=== PATIENT | female | born 1955 | race Caucasian/White ===

== ENCOUNTER 2017-03-17 17:10 | Inpatient (IN) | payer BC, MEDICARE ==
[2017-03-17] MEDS ORDERED: ISOVUE-370 76%-LOCM 1 ML ONE (17:33)
[2017-03-17 17:59] LABS: Hemoglobin 16.1 g/dL (12.0-16.0); Mean Corpuscular HGB CONC 33.4 g/dL (32.0-36.0); Mean Corpuscular Hemoglobin 30.9 pg (27.0-31.0); Mean Corpuscular Volume 92.5 fl (81.0-99.0); Mean Platelet Volume 7.5 fL (7.4-10.4); Platelet Count 243 thou/uL (130-400); RBC Distribution Width 12.2 % (11.5-14.5); White Blood Cell (WBC) Count 7.7 thou/uL (4.8-10.8)
[2017-03-17 18:16] LABS: ALT (SGPT) 27 U/L (8-55); AST (SGOT) 34 U/L (5-34); Albumin 4.1 g/dL (3.4-4.8); Alkaline Phosphatase 200 U/L (40-150); Anion Gap 23 mmol/L (10-20); BUN (Urea Nitrogen) 28 mg/dL (9.8-20.1); Band 25 % (5-11); Bilirubin, Total 0.4 mg/dL (0.2-1.2); Calc. Creatinine Clearance 0 mL/min (70-130); Calcium 9.4 mg/dL (7.8-10.44); Carbon Dioxide 15 mmol/L (23-31); Chloride 99 mmol/L (98-107); Estimated GFR-MDRD 21; Globulin 3.5 g/dL (2.4-3.5); Glucose 149 mg/dL (80-115); Large Platelets SLIGHT; Lipase 48 U/L (8-78); Lymphocytes 4 % (21-51); MDiff Complete? YES; Magnesium 2.1 mg/dL (1.6-2.6); Monocytes 1 % (0-10); Neutrophil 66 % (42-75); Potassium 3.8 mmol/L (3.5-5.1); Protein, Total 7.6 g/dL (6.0-8.3); Reactive Lymphocytes 4 % (0-10); Sodium 133 mmol/L (136-145)
[2017-03-17 18:27] LABS: Prothrombin Time 13.5 SEC (12.0-14.7)
--- NOTE | 2017-03-17 18:39 | RAD ---
PORTABLE CHEST ONE VIEW 03/17/17 at 5:19 p.m. HISTORY: Syncope. FINDINGS: Comparison made with exam of 02/22/17. The heart size is normal. the lungs are expanded without focal areas of consolidation, pneumothorax o r pleural effusions. There is continued mild elevation of the left hemidiaphragm. IMPRESSION: No acute process. POS: [facility]
[2017-03-17] MEDS ORDERED: Acetaminophen 500 MG TAB ONE (18:42)
[2017-03-17] MEDS ORDERED: Pantoprazole 40 MG VIAL ONE ×2 (18:42→18:43)
[2017-03-17] MEDS ORDERED: Oseltamivir 75 MG CAP PO SCH (19:30)
[2017-03-17 20:27] LABS: Lactic Acid 3.2 mmol/L (0.5-2.2)
--- NOTE | 2017-03-17 21:05 | CT ---
CT ABDOMEN AND PELVIS WITH IV CONTRAST 03/17/17 HISTORY: GI bleed. Syncope. Mild abdominal pain. FINDINGS: Comparison made with noncontrasted exam of 02/23/17. The lung bases are clear. The liver, spleen, pancreas, left adrenal gland and kidneys are normal. Th e 1.5 cm right adrenal nodule consistent with adenoma on the noncontrasted exam is stable. No free air, free fluid or lymphadenopathy seen in the abdomen or pelvis. There is fluid in loops of small and large bowel. No abnormal bowel loop dilatation is seen. A normal appearing appendix is pres ent. There are vascular calcifications without evidence of aneurysmal dilatation of the abdominal aor ta. The patient is post hysterectomy and cholecystectomy. There are degenerative changes in the spine . A small hiatal hernia is present. IMPRESSION: 1. Small hiatal hernia. 2. Right adrenal adenoma. 3. Fluid in the GI tract. POS: [facility]
[2017-03-17 21:31] LABS: Bilirubin Negative (Negative); Blood, Urine Large (Negative); Clarity CLOUDY (Clear); Glucose, Urine (Dipstick) Negative (Negative); Leukocyte Negative (Negative); Nitrite Negative (Negative); Protein, Urine (Dipstick) 100 mg/dL (Neg-Trace); Specific Gravity, Urine 1.044 (1.002-1.036); Urobilinogen 0.2 mg/dL (0.2-1.0)
[2017-03-17 21:36] LABS: Bacteria/HPF 1+ HPF (None Seen); Hyaline Casts/LPF 0-3 HYALINE CAST LPF (0-3 Hyaline); Squamous Epithelial 21-50 HPF (0-3); WBC/HPF 0-3 HPF (0-3)
[2017-03-17 21:44] LABS: Yeast-AUWi Flag 66.9 (0-25.0)
[2017-03-17 21:45] LABS: Yeast-All Forms None Seen HPF (None Seen)
[2017-03-17] MEDS ORDERED: cefTRIAXone\\ROCEPHIN 1 GM in Sodium Chloride 0.9% 100 ML IVPB SCH (21:45)
[2017-03-17] MEDS ORDERED: CCU Electrolyte Replacement 1 EACH FS SCH (21:45)
[2017-03-17] MEDS ORDERED: Potassium Phosphate 15 MMOL in Sodium Chloride 0.9% 250 ML 250 ML IV PRN (22:11)
[2017-03-17] MEDS ORDERED: Potassium Chloride 20 MEQ TAB PO PRN (22:11)
[2017-03-17] MEDS ORDERED: Potassium Phosphate 9 MMOL in Sodium Chloride 0.9% 100 ML IVPB PRN (22:11)
[2017-03-17] MEDS ORDERED: CCU ELECTROLYTE REPLACEMENT PROTOCOL FS PRN (22:11)
[2017-03-17] MEDS ORDERED: Magnesium 2 GM/NS 0.9% 100 ML 2 GM in Premix Bag 1 BAG IVPB PRN (22:11)
[2017-03-17] MEDS ORDERED: Potassium Chloride 40 MEQ in Sodium Chloride 0.9% 250 ML 250 ML IVPB PRN (22:11)
[2017-03-17] MEDS ORDERED: Magnesium Oxide 400 MG TAB PO PRN ×2 (22:11)
[2017-03-17] MEDS ORDERED: Potassium Chloride 40 MEQ in Premix Bag 1 BAG IVPB PRN (22:11)
[2017-03-17] MEDS ORDERED: Potassium Phosphate 12 MMOL in Sodium Chloride 0.9% 250 ML 250 ML IV PRN (22:11)
[2017-03-17 22:19] LABS: Lactic Acid 1.7 mmol/L (0.5-2.2)
[2017-03-17 22:39] LABS: Troponin I 0.046 ng/mL (< 0.028)
[2017-03-17 23:02] VITALS: BMI 15.4
[2017-03-17] MEDS: Sodium Chloride 0.9% 1,000 ML IV SCH (23:05)
[2017-03-18] MEDS: cefTRIAXone\\ROCEPHIN 1 GM, Syringe 0.4 ML in Sterile Water 9.6 ML SLOW IVP SCH ×2 (00:10→22:06)
[2017-03-18 01:15] LABS: #Lymphocytes 0.6 thou/uL (1.20-3.40); #Monocytes 0.3 thou/uL (0.11-0.59); %Basophils 0.1 % (0.0-1.0); %Lymphocytes 9.6 % (21.0-51.0); %Monocytes 4.8 % (0.0-10.0); %Neutrophils 85.5 % (42.0-75.0); Hemoglobin 14.6 g/dL (12.0-16.0); Mean Corpuscular HGB CONC 33.4 g/dL (32.0-36.0); Mean Corpuscular Hemoglobin 30.7 pg (27.0-31.0); Mean Corpuscular Volume 91.7 fl (81.0-99.0); Mean Platelet Volume 7.3 fL (7.4-10.4); Platelet Count 152 thou/uL (130-400); RBC Distribution Width 12.2 % (11.5-14.5); Red Blood Cell (RBC) Count 4.75 mill/uL (4.20-5.40); White Blood Cell (WBC) Count 5.8 thou/uL (4.8-10.8)
[2017-03-18 01:29] LABS: Troponin I 0.051 ng/mL (< 0.028)
--- NOTE | 2017-03-18 02:39 | HP ---
DATE OF ADMISSION: 03/17/2017 PRIMARY CARE PHYSICIAN: Eric Yi M.D. CHIEF COMPLAINT: Episode of syncope, low blood pressure, and dizziness. HISTORY OF PRESENT ILLNESS: This is a 62-year-old female patient of Dr. Eric Yi with a history of hypertension, hyperlipidemia, anxiety disorder, and a recent admission for a near syncope, who presented to the emergency department with worsening symptoms of dizziness. During the last hospitalization 4 weeks ago, she was found to be dehydrated and to have a urinary tract infection with Proteus mirabilis and was sent home on oral Cipro. She was told to follow up with Dr. Yi and did not follow up as directed. Today, she reports of having an episode of low blood pressure and passing out at home. She presented to the emergency department and had a large bloody bowel movement at that time. She states that over the past few weeks, she has had smaller episodes of bright red blood in her stool. Per family, her blood pressure was low as 60 systolic at home prior to coming to the ED. Upon presenting to the emergency department, she was also found to have a positive flu test. The patient states that she did develop febrile symptoms about 4 days ago with cough, congestion, and fever up to 102. Due to the near syncopal episode and the blood in the stool, she was given IV fluids in the ER as well as transfusion of unmatched packed red blood cells. Following the initiation of the transfusion, she developed a transfusion reaction with high fever and chills. She was given steroids, Tylenol, and Benadryl at that time. She states that she felt worse since then. She is now being admitted for further evaluation, treatment of the influenza, GI bleed, and possible sepsis syndrome. PAST MEDICAL HISTORY: Hypertension, hyperlipidemia, anxiety disorder. She does not have a diagnosis of COPD, but she has smoked for 40 years. The patient states she has chronic abdominal pain for which she was followed by Dr. Kidd. No history of diabetes, stroke or coronary artery disease. PAST SURGICAL HISTORY: Hysterectomy, cholecystectomy, bladder repair, colonoscopy and EGD by Dr. Kidd she states several years ago MEDICATIONS: Include metoprolol 50 mg b.i.d., Lipitor 20 mg daily, Venlafaxine 150 mg daily, gabapentin 300 mg 4 at bedtime, Valium 2 mg 2 tabs at bedtime, Zolpidem p.r.n. sleep, butalbital p.r.n. pain, amlodipine/benazepril 10/20 once daily. FAMILY HISTORY: Positive for hypertension, stroke, and history of alcoholism. SOCIAL HISTORY: She is . She lives at home. She smokes about half a pack of cigarettes a day for the past 40-45 years. Denies alcohol or illicit drug use. REVIEW OF SYSTEMS: General: She does admit to recent illness, recent hospitalization 4 weeks ago. She admits to positive fevers and chills, decreased appetite. HEENT: Positive sore throat, positive congestion. Cardiovascular: Denies chest pain or palpitations. Pulmonary: Positive for cough, positive shortness of breath. No hemoptysis. Gastrointestinal: Positive nausea and vomiting, positive bloody stool, bright red blood per rectum. Genitourinary: History of urinary tract infection 4 weeks ago. She did not complete her antibiotic course. Musculoskeletal: Positive for joint pains. Neurologic: Positive for syncope, persistent dizziness. PHYSICAL EXAMINATION: VITAL SIGNS: T-max in the ER was 102, pulse of 100, respirations 14-18, blood pressure was 100/50. GENERAL: She is awake and alert, in no acute distress. She does appear ill but nontoxic. No conversational dyspnea. NECK: Supple, no JVD, adenopathy, or bruits. HEART: Tachycardic, with no murmurs. LUNGS: With scattered rhonchi, positive for expiratory wheezes throughout. ABDOMEN: Positive bowel sounds in all four quadrants, soft. Diffuse tenderness. No rebound, no guarding. EXTREMITIES: No clubbing, cyanosis, or edema. 2+ peripheral pulses bilaterally. NEUROLOGIC: CN 2-12 are grossly intact. No lateralizing signs. LABORATORY DATA: White blood cell count 7.7, hemoglobin and hematocrit 16.1 and 48.2, 25% bands, 4% lymphocytes, 243 platelets. PT, PTT were normal. D- dimer was elevated at 7.41. Sodium 133, potassium 3.8, chloride 99, CO2 of 15, BUN and creatinine 28 and 2.33 with a GFR of 21, glucose of 149. Lactic acid initially was elevated at 5.8, now is down to 3.2, calcium of 9.4, magnesium of 2.1, total bilirubin of 0.4, AST and ALT are normal, alkaline phosphatase of 200. LDH elevated at 417. Cardiac enzymes were negative. Albumin of 4.1, lipase of 48. Urinalysis is pending. Flu test was positive for influenza type A. Chest x-ray showed no active disease, no acute process. Abdominal CT and pelvis CT revealed small hiatal hernia, right adrenal adenoma, fluid in the small and large bowels, but no signs of dilation. ASSESSMENT AND PLAN: This is a 62-year-old female patient with a history of hypertension and hyperlipidemia with a recent under treated urinary tract infection, now with sepsis syndrome, influenza, hematochezia and possible COPD exacerbation. 1. Influenza. We will continue respiratory precautions. In spite of being 4 days since the onset of her symptoms, due to her respiratory status, we will initiate Tamiflu therapy. 2. Sepsis syndrome with elevated lactate, bandemia as well as hypotension and syncope. We will start Rocephin to cover for recent Proteus UTI and admit to the critical care unit. Will continue fluid resuscitation. Consult Critical Care. 3. Possible gastrointestinal bleed. We will recheck hemoglobin and hematocrit after recent transfusion. We will follow closely and consult GI. 4. Stage 4 chronic kidney disease. May improve with fluid resuscitation but continue to monitor closely. 5. Anxiety and depression. We will continue venlafaxine to avoid withdrawal symptoms. 6. History of hypertension. We will hold her BP meds for now since she is hypotensive. 7. COPD. Will start albuterol nebulizer treatments. Follow up with chest xray. Will consider PFT after recovery from acute illness. MTDD
[2017-03-18 04:56] LABS: #Lymphocytes 0.6 thou/uL (1.20-3.40); #Monocytes 0.2 thou/uL (0.11-0.59); #Neutrophils 3.9 thou/uL (1.40-6.50); %Basophils 0.2 % (0.0-1.0); %Eosinophils 0.2 % (0.0-10.0); %Lymphocytes 12.5 % (21.0-51.0); %Monocytes 4.6 % (0.0-10.0); %Neutrophils 82.5 % (42.0-75.0); Hemoglobin 14.5 g/dL (12.0-16.0); Mean Corpuscular HGB CONC 33.8 g/dL (32.0-36.0); Mean Corpuscular Hemoglobin 31.2 pg (27.0-31.0); Mean Platelet Volume 7.6 fL (7.4-10.4); Platelet Count 152 thou/uL (130-400); RBC Distribution Width 12.3 % (11.5-14.5); Red Blood Cell (RBC) Count 4.64 mill/uL (4.20-5.40); White Blood Cell (WBC) Count 4.7 thou/uL (4.8-10.8)
[2017-03-18] MEDS: Sodium Chloride 0.9% 1,000 ML IV SCH ×3 (05:05→23:59)
[2017-03-18 05:08] LABS: INR-International Normal Ratio 1.1; PTT 37.3 SEC (22.9-36.1); Prothrombin Time 14.5 SEC (12.0-14.7)
[2017-03-18 05:22] LABS: ALT (SGPT) 32 U/L (8-55); AST (SGOT) 65 U/L (5-34); Albumin 3.6 g/dL (3.4-4.8); Alkaline Phosphatase 144 U/L (40-150); Anion Gap 17 mmol/L (10-20); BUN (Urea Nitrogen) 25 mg/dL (9.8-20.1); Bilirubin, Total 0.3 mg/dL (0.2-1.2); Calc. Creatinine Clearance 25 mL/min (70-130); Calcium 8.2 mg/dL (7.8-10.44); Carbon Dioxide 14 mmol/L (23-31); Chloride 110 mmol/L (98-107); Estimated GFR-MDRD 34; Globulin 2.9 g/dL (2.4-3.5); Glucose 119 mg/dL (80-115); Potassium 3.1 mmol/L (3.5-5.1); Protein, Total 6.5 g/dL (6.0-8.3); Sodium 138 mmol/L (136-145)
[2017-03-18] MEDS: Pantoprazole 40 MG VIAL IVP SCH ×2 (07:49→20:32)
[2017-03-18] MEDS: Oseltamivir 75 MG CAP PO SCH ×2 (07:49→20:32)
[2017-03-18] MEDS: Venlafaxine HCl XR 150 MG CAP PO SCH (07:49)
--- NOTE | 2017-03-18 08:42 | RAD ---
CHEST ONE VIEW: History: Pneumonitis. Follow up. Comparison: 03-17-17 FINDINGS: Cardiac silhouette is magnified by projection. Pulmonary vasculature remains upper limits of normal. Mild patchy bibasilar infiltrates are stable. Mediastinum is midline. There is no evidence of pneumot horax. monitoring and evaluation advisor leads overlie the chest. IMPRESSION: Stable radiographic appearance of the chest. POS: [facility]
[2017-03-18] MEDS ORDERED: FLU VACC QS2017-18 36 mo. & older 0.5 ML SYRINGE IM ONE (09:00)
[2017-03-18 12:31] LABS: Hemoglobin 15.4 g/dL (12.0-16.0); Mean Corpuscular HGB CONC 33.2 g/dL (32.0-36.0); Mean Corpuscular Hemoglobin 30.9 pg (27.0-31.0); Mean Corpuscular Volume 93.1 fl (81.0-99.0); Mean Platelet Volume 7.8 fL (7.4-10.4); Platelet Count 165 thou/uL (130-400); RBC Distribution Width 12.4 % (11.5-14.5); Red Blood Cell (RBC) Count 4.99 mill/uL (4.20-5.40); White Blood Cell (WBC) Count 6.4 thou/uL (4.8-10.8)
--- NOTE | 2017-03-18 13:00 | PRG ---
DATE OF SERVICE: 03/18/2017 SUBJECTIVE: Ms. Weeks is alert and awake. She is complaining of lower abdominal pain. She is req uesting to have something to drink. She was admitted last night with possible sepsis and rectal blee ding. Evidently, she was given a unit of blood as well exact reasoning for giving her a unit of bloo d based on her hemoglobin and hematocrit is still unclear to me. At this time, she is still complain ing of lower abdominal pain. She was tested positive for flu antigen as well. PHYSICAL EXAMINATION: VITAL SIGNS: BP 173/91, pulse 77, O2 saturation is 97%. GENERAL: She appears to be a little bit fatigued. HEENT: Otherwise, unremarkable. NECK: Supple, full range of motion, no masses. LUNGS: Reveal bilateral breath sounds. HEART: Reveals no murmur. ABDOMEN: Reveals diffuse tenderness to the left lower quadrant, right lower quadrant area without ev idence of rebound or guarding. There is no hepatosplenomegaly noted. LABORATORY DATA: Her hemoglobin is 14.5, hematocrit 42.7, white blood count 4.7. Electrolyte panel significant for potassium 3.1, creatinine is down to 1.56. Lactic acid down to 1.7. It is noted his stool for C. difficile has been done and antigen is currently positive, toxin still pending. IMPRESSION: 1. This is the patient who appears to be admitted with rectal bleeding. I believe, she probably is suffering from Clostridium difficile colitis. 2. Incidentally noticed, she probably has influenza. 3. Hypertension. 4. Recent urinary tract infection with dehydration. PLAN: We will begin the patient on IV Flagyl. We will continue current Rocephin. We will await fur ther recommendations per Pulmonology as well as a GI. It appears, in my opinion, the patient is stab le enough to move to the floor. She is currently on Rocephin. We will continue this at this time. We will go ahead and start her on clear liquid diet.
[2017-03-18] MEDS: Morphine 4 MG/ML VIAL SLOW IVP PRN ×2 (13:03→18:20)
[2017-03-18] MEDS: metroNIDAZOLE 500 MG in Premix Bag 1 BAG IVPB SCH ×2 (13:03→22:11)
[2017-03-18] MEDS: PROVENTIL INHALER 6.7 G (200 INHALATIONS) INH SCH ×2 (14:58→19:07)
--- NOTE | 2017-03-18 19:36 | CON ---
DATE OF CONSULTATION: 03/18/2017 GI INPATIENT CONSULTATION NOTE REQUESTING PHYSICIAN: Dr. Mobley. REASON FOR CONSULTATION: Lower gastrointestinal bleeding. HISTORY OF PRESENT ILLNESS: Benita Weeks is a 62-year-old woman who was recently seen in the GI Clinic in the outpatient setting by my colleague, Dr. Ap Kidd. She has a history of hyper tension, hyperlipidemia, anxiety disorder, ongoing tobacco abuse, hysterectomy and cholecystectomy. Dr. Kidd saw her just over a month ago in consultation for chronic abdominal pain which at that time she was characterizing is being on the right side. She also had some chronic nausea as well as some recent weight loss. No GI bleeding at that time. She had planned to perform EGD and colonoscopy, bu t this has not happened yet. She reports having had a prior colonoscopy in 2005 with history of poly ps removed and a prior EGD about 30 years ago and she is not sure what was found at that time. She was admitted to the hospital last night after presenting with syncope and hypotension. She had e levated lactic acid and sepsis syndrome. This is in the context of recent antibiotic treatment for P roteus urinary tract infection. After arrival to the ER, she had a bowel movement and passed a fairl y large amount of bright red blood per rectum. She says this is the first time this has happened to this extent. She has had a few more minor episodes of bright red blood over the years in the past. It is unclear why because her presenting hemoglobin was 16, but she received 1 unit RBC transfusion a nd upon arrival, hemoglobin is currently 15.4. Unfortunately, she developed a transfusion reaction a nd had to get Benadryl and steroids. Laboratory studies also demonstrated positive influenza A as we ll as antigen positivity for C. difficile though toxin is pending. C. difficile was retested today a nd antigen and toxin are negative, but she has been started on Flagyl already. Currently she complai ns of her chronic ongoing more mild abdominal discomfort with a little bit of new lower abdominal melissa n since presentation over the past day. She is tolerating a liquid diet right now. She has remained hemodynamically stable. She passed 1 more bowel movement earlier today with bright red blood in it. Her lab parameters have all improved including her creatinine and lactic acid. PAST MEDICAL HISTORY: Hypertension, hyperlipidemia, anxiety disorder, ongoing tobacco abuse, hystere ctomy, cholecystectomy, bladder repair, colonoscopy with colon polyps about 10 years ago. EGD may be 30 years ago. MEDICATIONS: Metoprolol, Lipitor, venlafaxine, gabapentin, Valium, zolpidem, butalbital, amlodipine/ benazepril. INPATIENT MEDICATIONS: IV ceftriaxone, IV Flagyl, Tamiflu, Protonix 40 mg IV q.12 hours, potassium c hloride. SOCIAL HISTORY: She smokes about half pack of cigarettes per day for the past 40 years. No alcohol or drug use. FAMILY HISTORY: Negative for GI malignancy. PHYSICAL EXAMINATION: VITAL SIGNS: Temperature 98.2, pulse 81, blood pressure 173/91, 100% oxygen saturation on room air. GENERAL: A 62-year-old woman sitting up in bed comfortably in no acute distress. SKIN: No jaundice, no rashes were palpable. EYES: No scleral icterus. Extraocular movements intact. ENT: Mucous membranes moist, no oral lesions. LYMPH: No submandibular or supraclavicular lymphadenopathy. THYROID: Nontender to palpation. HEART: Regular rate and rhythm. LUNGS: Clear to auscultation bilaterally. ABDOMEN: Bowel sounds present, soft, some tenderness to palpation in the right upper quadrant and in the lower abdomen in the midline, but no guarding or rebound tenderness. EXTREMITIES: No peripheral edema. VESSELS: Radial pulses 2+ bilaterally. NEUROLOGIC: Cranial nerves II-XII intact bilaterally. No focal deficits. LABORATORY STUDIES: WBC 6.4, hemoglobin 15.4, platelets 165, INR 1.1, lactic acid initially 5.8, now down to 1.7. Creatinine initially 2.33 down now to 1.56, BUN is 25. Total bilirubin 0.3, alkaline phosphatase 144, AST 65, ALT 32, and troponin negative. Influenza A is positive. Yesterday, stool s tudies show Clostridium difficile antigen positive, toxin and PCR pending. Today C. difficile collec tion showed negative antigen and toxin, Campylobacter and Shiga toxin are negative. Stool culture sh ows normal enteric octavia. IMAGING STUDIES: CT of the abdomen and pelvis performed on admission shows a small hiatal hernia, ri ght adrenal adenoma and is otherwise negative. Chest x-ray showed no acute processes. There is some mild bilateral interstitial haziness. ASSESSMENT AND PLAN: 1. Rectal bleeding. 2. Possible Clostridium difficile colitis. 3. Chronic abdominal pain. 4. Influenza A. 5. Recent transfusion reaction. The patient remains hemodynamically stable and hemoglobin is stable and normal at 15.4. She does have some overt bright red blood per rectum. This could just represen t a rectal outlet source, but also suspect possible colitis either infectious or inflammatory. Of no te, the discordant C. difficile assay results, I agree with going ahead and continuing treatment with Flagyl for now. Dr. Kidd had planned to perform EGD and colonoscopy on an outpatient basis as alireza p for her chronic abdominal discomfort. At this point, I would not plan for any endoscopy tomorrow g iven her stability, her normal hemoglobin and the more chronic nature of her symptoms. Would trend h emoglobin and hematocrit. Observe for further overt bleeding today and tomorrow and let her have a f ull liquid diet. I suspect we will stick with the plan for a more elective esophagogastroduodenoscop y and colonoscopy. Workup for her chronic abdominal pain on an outpatient basis following hospital [facility].
[2017-03-18] MEDS: Metoprolol Tartrate 50 MG TAB PO SCH (20:31)
[2017-03-18] MEDS: Diazepam 2 MG TAB PO SCH (20:31)
[2017-03-18] MEDS: Zolpidem Tartrate 5 MG TAB PO PRN (20:32)
[2017-03-18] MEDS: Gabapentin 300 MG CAP PO SCH ×2 (20:32)
[2017-03-18] MEDS: Acetaminophen 500 MG TAB PO PRN (23:58)
--- NOTE | 2017-03-19 02:43 | CON ---
DATE OF CONSULTATION: 03/18/2017 HISTORY OF PRESENT ILLNESS: Ms. Weeks is a 62-year-old female. She was recently treated for bladd er infection. She started having small frequent bloody bowel movements, and presented to the emergen cy department last night. She was seen by Dr. Moody apparently and transfused doing crossmatch blo od, presumably because he felt she was having massive gastrointestinal bleed. She until developed a transfusion reaction subsequently was admitted to the Critical Care Unit. However, the history given that she had a blood pressure is low 60 systolic at home, but this is acco rding to the H&P, it was provided by family. PAST MEDICAL HISTORY: Remarkable for hypertension, lipid disorder, anxiety, chronic abdominal pain f ollowed by Dr. Kidd. PAST SURGICAL HISTORY: Remarkable for hysterectomy, cholecystectomy, bladder suspension, and endosco py, upper and lower by Dr. Kidd. She is on beta nia, metoprolol, Lipitor, venlafaxine, gabapentin, Valium, Ambien, butalbital, aml odipine, and benazepril. FAMILY HISTORY: Positive for vascular disease, hypertension, and alcoholism. SOCIAL HISTORY: Smokes half pack a day most of her life. She is not a daily drinker. She does not use drugs. She is . REVIEW OF SYSTEMS: Otherwise negative. She says her only complaint is a small frequent bloody bowel movement. She is not having abdominal cramping. Recorded vital signs since she has been admitted, have been predominantly hypertensive actually. PHYSICAL EXAMINATION: VITAL SIGNS: Initial blood pressure on admission in the ICU was 125/90, heart rate 74, respiratory r ate 22. She is afebrile. Oximetry is 100%. She has been normotensive or hypertensive all day until this evening. HEENT: Pupils are equal. Sclerae is anicteric. NECK: Supple. LUNGS: Clear. HEART: Regular rhythm. ABDOMEN: Nontender, but slightly distended. EXTREMITIES: Without asymmetry. LABORATORY DATA: Microbiology: Urine cultures negative. C. difficile antigen and toxin are negativ e by report today. C. difficile antigen was positive yesterday. White count 6.4, hemoglobin was 15.4, her hemoglobin yesterday afternoon was 16.1, platelets 365,000. Sodium 138, potassium 3.1, chloride 110, bicarb 14, BUN 25, creatinine 1.56, creatinine was 2.33 on admission. IMPRESSION: 1. Status post reported transfusion reaction. 2. Rectal bleeding, unclear whether or not she really has a Clostridium difficile infection. 3. Chronic abdominal pain. 4. Influenza swab. 5. Transfusion reaction. She was stable this morning, was transferred out of the Critical Care Unit. I think the management i s appropriate. I have a little to add to this, we will proceed as needed. This is a 50 minutes consult. Greater than 50% of the time was spent reviewing radiographs, reviewin g lab work, reviewing records and coordinating care with the staff on the unit.
[2017-03-19] MEDS ORDERED: Ondansetron ODT 4 MG TAB PO PRN (04:02)
[2017-03-19] MEDS: Ondansetron HCl/PF 4 MG/2 ML Vial SLOW IVP PRN ×3 (04:04→16:49)
[2017-03-19] MEDS: Acetaminophen 500 MG TAB PO PRN (04:08)
[2017-03-19 04:41] LABS: #Lymphocytes 1.3 thou/uL (1.20-3.40); #Monocytes 0.4 thou/uL (0.11-0.59); #Neutrophils 6.3 thou/uL (1.40-6.50); %Basophils 0.3 % (0.0-1.0); %Lymphocytes 16.4 % (21.0-51.0); %Monocytes 4.5 % (0.0-10.0); %Neutrophils 78.8 % (42.0-75.0); Hemoglobin 14.6 g/dL (12.0-16.0); Mean Corpuscular HGB CONC 33.8 g/dL (32.0-36.0); Mean Corpuscular Hemoglobin 30.9 pg (27.0-31.0); Mean Corpuscular Volume 91.5 fl (81.0-99.0); Mean Platelet Volume 7.9 fL (7.4-10.4); Platelet Count 183 thou/uL (130-400); RBC Distribution Width 12.5 % (11.5-14.5); Red Blood Cell (RBC) Count 4.73 mill/uL (4.20-5.40)
[2017-03-19 05:17] LABS: ALT (SGPT) 56 U/L (8-55); AST (SGOT) 141 U/L (5-34); Albumin 3.7 g/dL (3.4-4.8); Alkaline Phosphatase 141 U/L (40-150); Anion Gap 13 mmol/L (10-20); BUN (Urea Nitrogen) 12 mg/dL (9.8-20.1); Bilirubin, Total 0.3 mg/dL (0.2-1.2); Calc. Creatinine Clearance 45 mL/min (70-130); Calcium 8.2 mg/dL (7.8-10.44); Carbon Dioxide 20 mmol/L (23-31); Chloride 108 mmol/L (98-107); Estimated GFR-MDRD 65; Globulin 2.9 g/dL (2.4-3.5); Glucose 93 mg/dL (80-115); Potassium 3.5 mmol/L (3.5-5.1); Protein, Total 6.6 g/dL (6.0-8.3); Sodium 137 mmol/L (136-145)
[2017-03-19] MEDS: metroNIDAZOLE 500 MG in Premix Bag 1 BAG IVPB SCH ×3 (05:39→22:03)
[2017-03-19] MEDS: PROVENTIL INHALER 6.7 G (200 INHALATIONS) INH SCH ×4 (07:27→22:11)
--- NOTE | 2017-03-19 07:39 | PRG ---
DATE OF SERVICE: 03/19/2017 Ms. Weeks is resting in bed. She appears to be alert, active, in no distress. She is still compla ining of some lower abdominal pain, some nausea, but no vomiting. PHYSICAL EXAMINATION: VITAL SIGNS: Temperature 100.1, BP 144/80. LUNGS: Clear. HEART: Reveals no murmurs. ABDOMEN: Still shows some diffuse tenderness without evidence of rebound or guarding. LABORATORY: Hemoglobin is 14.6, hematocrit 43.3, white blood count 8.0. Creatinine is normal at 0.8 8. Review of other labs; C. difficile toxin and antigen are both positive. Campylobacter and Shigella t oxins are negative. IMPRESSION: 1. Influenza. 2. Clostridium difficile colitis, now currently on Flagyl. She is also on Rocephin as we await austin perez blood culture reports. PLAN: She will continue current regimen. We will decrease IV fluids to 75 mL per hour. I have info rmed the patient of all of the findings, she understands the results and treatment. Hopeful discharg e in the next few days once she has stabilized.
[2017-03-19] MEDS: Sodium Chloride 0.9% 1,000 ML IV SCH ×2 (08:17→11:34)
[2017-03-19] MEDS: Pantoprazole 40 MG VIAL IVP SCH ×2 (08:18→20:18)
[2017-03-19] MEDS: Gabapentin 300 MG CAP PO SCH ×3 (08:19→20:17)
[2017-03-19] MEDS: Venlafaxine HCl XR 150 MG CAP PO SCH (08:20)
[2017-03-19] MEDS: Diazepam 2 MG TAB PO SCH ×3 (08:20→20:17)
[2017-03-19] MEDS: Oseltamivir 75 MG CAP PO SCH ×2 (08:20→20:17)
[2017-03-19] MEDS: Metoprolol Tartrate 50 MG TAB PO SCH ×2 (08:22→20:17)
[2017-03-19] MEDS: Amlodipine 10 MG TAB PO SCH ×2 (08:23→16:48)
[2017-03-19] MEDS ORDERED: Venlafaxine HCl XR 150 MG CAP PO SCH (09:00)
[2017-03-19] MEDS: Morphine 4 MG/ML VIAL SLOW IVP PRN (11:39)
--- NOTE | 2017-03-19 13:59 | PQF ---
CLINICAL DOCUMENTATION IMPROVEMENT CLARIFICATION FORM: ICD-10 Updated PLEASE DO AN ADDENDUM TO THE PROGRESS NOTE WITH ANY DOCUMENTATION UPDATES OR ADDITIONS AND CARRY THROUGH TO DC SUMMARY. THANK YOU. DATE: 03/19/17 ATTN: DR. LEONG Please exercise your independent, professional judgment in responding to the clarification form. Clinical indicators are provided on the bottom of this form for your review Please check appropriate box(s) to clarify if the following diagnosis has been ruled in our ruled out: SEPSIS [ ] Ruled in diagnosis [ ] Continue to treat [ ] Resolved [ x ] Ruled out diagnosis [ ] Cannot rule out diagnosis [ ] Other diagnosis [ ] Unable to determine In addition, please specify: Present on Admission (POA): [ ] Yes [ ] No [ ] Unable to determine For continuity of documentation, please document condition throughout progress notes and discharge summary. Thank You. CLINICAL INDICATORS - SIGNS / SYMPTOMS / LABS H&P 03/17: "SEPSIS SYNDROME WITH ELEVATED LACTATE" PROGRESS NOTE 03/18: "SHE WAS ADMITTED LAST NIGHT WITH POSSIBLE SEPSIS AND RECTAL BLEEDING" BANDS 25 LACTIC ACID 5.8 BP IN ER 85/55 RR 22 TEMP 102.9 TREATMENT: TAMIFLU (03/18-PRESENT) FLAGYL 03/18-PRESENT) ROCEPHIN (03/17-03/18) BLOOD, URINE AND STOOL CULTURES (This form is maintained as a part of the permanent medical record) 2014 [employer], [employer]. All Rights Reserved MTDD
[2017-03-19] MEDS ORDERED: Promethazine HCl 25 MG/ML VIAL IM/IV PRN (16:04)
[2017-03-19] MEDS: Vancomycin HCl 25 MG/ML Oral PO SCH ×2 (16:52→20:18)
--- NOTE | 2017-03-19 17:08 | PRG ---
DATE OF SERVICE: 03/19/2017 SUBJECTIVE: The patient complains of continued abdominal pain and cramps that are worsened by any or al intake other than ice chips. She continues to have bloody diarrhea. She has nausea without vomit ing. OBJECTIVE: VITAL SIGNS: Temperature 98.1, pulse 68, respiratory rate 20, blood pressure 135/79. CHEST: Clear. CARDIOVASCULAR: Regular rate and rhythm. ABDOMEN: Diffusely tender without rebound or guarding. Bowel sounds are present. RECTAL: Deferred. EXTREMITIES: Normal. NEUROLOGIC: Nonfocal. LABORATORY DATA: Shows a white blood cell count of 8.0, hemoglobin 14.6, hematocrit 43.3. Chemistri es significant for CO2 20, AST 141, ALT of 56. Urinalysis shows large blood, 7-10 RBCs, 21-50 squamo us, 1+ bacteria. ASSESSMENT: 1. Clostridium difficile diarrhea. 2. Influenza A. 3. Lower gastrointestinal bleeding. 4. Chronic abdominal pain. RECOMMENDATIONS: 1. Switch from Flagyl to vancomycin. 2. Continue clear liquids. 3. No endoscopy at this time.
[2017-03-19] MEDS: Morphine 4 MG/ML Carpuject SLOW IVP PRN (18:03)
[2017-03-19] MEDS: Zolpidem Tartrate 5 MG TAB PO PRN (20:17)
--- NOTE | 2017-03-19 21:13 | PRG ---
DATE OF SERVICE: 03/19/2017 Ms. Weeks had no complaints today. SUBJECTIVE: VITAL SIGNS: She is afebrile, heart rate 70, blood pressure 150/93 this afternoon, respiratory rate was 20, oximetry is 91. LUNGS: Clear. HEART: Regular rhythm. LABORATORY DATA: White count is 8.0, hemoglobin is 14.6, platelets 183,000. Sodium 137, potassium 3 .5, chloride 108, bicarbonate 20, BUN 12, creatinine 0.88. She is still having small frequent bloody bowel movements, she says although she still has not droppe d her hemoglobin. Gastroenterology is following. IMPRESSION: 1. Clostridium difficile? Her last stool study was negative. Very first one was positive. 2. Influenza A probably contributing little to this. 3. Chronic abdominal pain. She is complaining of abdominal cramping, but she is ambulating around t he room without any difficulty. She appears to be stable from a pulmonary standpoint and after a transfusion reaction, we will sign o ff.
[2017-03-19] MEDS: cefTRIAXone\\ROCEPHIN 1 GM, Syringe 0.4 ML in Sterile Water 9.6 ML SLOW IVP SCH (21:57)
[2017-03-20] MEDS: Sodium Chloride 0.9% 1,000 ML IV SCH ×2 (01:47→12:07)
[2017-03-20 04:35] LABS: #Basophils 0.1 thou/uL (0.0-0.2); #Eosinphils 0.1 thou/uL (0.0-0.7); #Lymphocytes 1.3 thou/uL (1.20-3.40); #Monocytes 0.4 thou/uL (0.11-0.59); #Neutrophils 4.8 thou/uL (1.40-6.50); %Basophils 0.8 % (0.0-1.0); %Lymphocytes 19.8 % (21.0-51.0); %Monocytes 6.3 % (0.0-10.0); %Neutrophils 72.1 % (42.0-75.0); Mean Corpuscular HGB CONC 34.7 g/dL (32.0-36.0); Mean Corpuscular Hemoglobin 31.8 pg (27.0-31.0); Mean Corpuscular Volume 91.6 fl (81.0-99.0); Mean Platelet Volume 8.1 fL (7.4-10.4); Platelet Count 132 thou/uL (130-400); RBC Distribution Width 12.4 % (11.5-14.5); Red Blood Cell (RBC) Count 4.09 mill/uL (4.20-5.40); White Blood Cell (WBC) Count 6.7 thou/uL (4.8-10.8)
[2017-03-20 04:52] LABS: ALT (SGPT) 48 U/L (8-55); AST (SGOT) 102 U/L (5-34); Albumin 3.1 g/dL (3.4-4.8); Alkaline Phosphatase 156 U/L (40-150); Anion Gap 12 mmol/L (10-20); BUN (Urea Nitrogen) 6 mg/dL (9.8-20.1); Bilirubin, Total 0.3 mg/dL (0.2-1.2); Calc. Creatinine Clearance 50 mL/min (70-130); Calcium 7.9 mg/dL (7.8-10.44); Carbon Dioxide 20 mmol/L (23-31); Chloride 107 mmol/L (98-107); Estimated GFR-MDRD 75; Globulin 2.4 g/dL (2.4-3.5); Glucose 79 mg/dL (80-115); Potassium 3.1 mmol/L (3.5-5.1); Protein, Total 5.5 g/dL (6.0-8.3); Sodium 136 mmol/L (136-145)
[2017-03-20] MEDS: metroNIDAZOLE 500 MG in Premix Bag 1 BAG IVPB SCH (05:51)
[2017-03-20] MEDS: PROVENTIL INHALER 6.7 G (200 INHALATIONS) INH SCH ×4 (07:16→19:49)
--- NOTE | 2017-03-20 07:49 | PRG ---
DATE OF SERVICE: 03/20/2017 Ms. Weeks is doing well. She feels slightly better, still having some pain in the lower abdomen, l ess blood in her stool. PHYSICAL EXAMINATION: VITAL SIGNS: Temperature 98.9, BP 150/74. LUNGS: Clear. HEART: Reveals no murmur. LABORATORY: Hemoglobin 13.0, hematocrit 37.5, white blood count 6.7, potassium is 3.1. IMPRESSION: 1. Resolving Clostridium difficile colitis. 2. Influenza. PLAN: She has been switched to oral vancomycin per Dr. Kidd. Will possibly discuss discharge with [facility] in the near future.
[2017-03-20] MEDS: Morphine 4 MG/ML Carpuject SLOW IVP PRN ×3 (08:08→18:46)
[2017-03-20] MEDS: Pantoprazole 40 MG VIAL IVP SCH ×2 (08:12→22:02)
[2017-03-20] MEDS: Venlafaxine HCl XR 150 MG CAP PO SCH (08:13)
[2017-03-20] MEDS: Metoprolol Tartrate 50 MG TAB PO SCH ×2 (08:13→22:02)
[2017-03-20] MEDS: Diazepam 2 MG TAB PO SCH ×3 (08:13→22:01)
[2017-03-20] MEDS: Amlodipine 10 MG TAB PO SCH (08:14)
[2017-03-20] MEDS: Oseltamivir 75 MG CAP PO SCH ×2 (08:15→22:01)
[2017-03-20] MEDS: Gabapentin 300 MG CAP PO SCH ×3 (08:16→22:02)
[2017-03-20] MEDS: Vancomycin HCl 25 MG/ML Oral PO SCH ×4 (08:19→22:03)
--- NOTE | 2017-03-20 12:36 | PRG ---
DATE OF SERVICE: 03/20/2017 SUBJECTIVE: The patient says she is feeling a little bit better today. She is still having cramps, abdominal pain and diarrhea. She was not able to tolerate anything other than clear liquids. OBJECTIVE: VITAL SIGNS: Temperature 98.4, pulse 74, respiratory rate 16, blood pressure 126/73. CHEST: Clear. CARDIOVASCULAR: Regular rate and rhythm. ABDOMEN: Benign, although diffusely tender. LABORATORY DATA: Shows white blood cell count of 6.7, hemoglobin 13. ASSESSMENT: 1. Clostridium difficile colitis. 2. Influenza. 3. Chronic abdominal pain. RECOMMENDATIONS: 1. Discontinue Flagyl. 2. Advance diet as needed. 3. No endoscopy at this time.
[2017-03-20] MEDS: Zolpidem Tartrate 5 MG TAB PO PRN (23:55)
[2017-03-21] MEDS: cefTRIAXone\\ROCEPHIN 1 GM, Syringe 0.4 ML in Sterile Water 9.6 ML SLOW IVP SCH (04:42)
[2017-03-21] MEDS: Morphine 4 MG/ML Carpuject SLOW IVP PRN (05:56)
[2017-03-21] MEDS: Sodium Chloride 0.9% 1,000 ML IV SCH (06:00)
[2017-03-21] MEDS: PROVENTIL INHALER 6.7 G (200 INHALATIONS) INH SCH ×3 (07:53→14:04)
[2017-03-21] MEDS: Amlodipine 10 MG TAB PO SCH (08:12)
[2017-03-21] MEDS: Metoprolol Tartrate 50 MG TAB PO SCH (08:13)
[2017-03-21] MEDS: Oseltamivir 75 MG CAP PO SCH (08:14)
[2017-03-21] MEDS: Pantoprazole 40 MG VIAL IVP SCH (08:15)
[2017-03-21] MEDS: Diazepam 2 MG TAB PO SCH (09:23)
[2017-03-21] MEDS: Gabapentin 300 MG CAP PO SCH (09:23)
[2017-03-21] MEDS: Venlafaxine HCl XR 150 MG CAP PO SCH (09:24)
[2017-03-21] MEDS: Vancomycin HCl 25 MG/ML Oral PO SCH ×2 (09:24→13:50)
[2017-03-21] MEDS: Acetaminophen 500 MG TAB PO PRN (12:54)
--- NOTE | 2017-03-21 13:18 | PRG ---
DATE OF SERVICE: 03/21/2017 Ms. Weeks is resting comfortably in bed. She has no other medical complaints. Still having some n ausea and lower abdominal cramping. PHYSICAL EXAMINATION: VITAL SIGNS: Temperature is 97.9, BP 120/71. LUNGS: Clear. HEART: Reveals no murmurs. ABDOMEN: The abdomen is diffusely tender, but no evidence of rebound or guarding. IMPRESSION: 1. Clostridium difficile colitis. 2. Resolved influenza. PLAN: 1. I have discussed the findings with the patient, she may be discharged home. She will be discharg ed home today. 2. She will be continued on vancomycin, follow up with Dr. Kidd for Gastroenterology followup. 3. Follow up with me as well.
[2017-03-21 15:24] VITALS: BP 116/69; TEMP 98.4
--- NOTE | 2017-03-25 13:52 | DIS ---
DISCHARGE DIAGNOSES: 1. Clostridium difficile colitis. 2. Chronic abdominal pain of unknown etiology. 3. Hypertension. ADMITTING PHYSICIAN: Dr. Eric Yi CONSULTING PHYSICIAN: Dr. Kidd [facility] SUMMARY: The patient is a 62-year-old female who was admitted through the ER. She initiall y was thought to have a lower GI bleed. As a matter of fact, she did receive 2 units of blood even t hunter her hemoglobin never was below 14. Further evaluation during her hospitalization did reveal th at she had C. difficile colitis as the cause of her rectal bleeding. She was treated with IV Flagyl as well as p.o. vancomycin after consult by Dr. Kidd. She continued t o do well through her hospitalization. By 03/21/2017 she could be discharged home. DISCHARGE MEDICATIONS: Noted in her chart. Initially she was discharged home on vancomycin p.o. She will follow up with me in 1 week.
== END 2017-03-21 15:49 | disposition home or self-care (01) | DRG 372 ==
LOC: ERS 17:10 → CCU 20:23 → T4-B 03-18 15:08
PROVIDERS: ADMIT Family Medicine; ATTEND Family Medicine
PROC: 30233N1 Transfusion of Nonautologous Red Blood Cells into Peripheral Vein, Percutaneous Approach (ICD-10-PCS; principal; 2017-03-17)
DX: A04.72 Enterocolitis due to Clostridium difficile, not specified as recurrent (principal); E87.2 Acidosis; N18.4 Chronic kidney disease, stage 4 (severe); J44.1 Chronic obstructive pulmonary disease with (acute) exacerbation; K92.1 Melena; J10.1 Influenza due to other identified influenza virus with other respiratory manifestations; E86.0 Dehydration; I12.9 Hypertensive chronic kidney disease with stage 1 through stage 4 chronic kidney disease, or unspecified chronic kidney disease; E78.5 Hyperlipidemia, unspecified; G89.29 Other chronic pain; K44.9 Diaphragmatic hernia without obstruction or gangrene; F32.9 Major depressive disorder, single episode, unspecified; F41.9 Anxiety disorder, unspecified; F17.210 Nicotine dependence, cigarettes, uncomplicated; Z82.49 Family history of ischemic heart disease and other diseases of the circulatory system; Y84.8 Other medical procedures as the cause of abnormal reaction of the patient, or of later complication, without mention of misadventure at the time of the procedure; Y92.230 Patient room in hospital as the place of occurrence of the external cause; R50.84 Febrile nonhemolytic transfusion reaction; T80.89XA Other complications following infusion, transfusion and therapeutic injection, initial encounter
CPT/HCPCS: 36415; 36416; 36430; 71045; 74177; 80053; 81003; 81015; 82248; 82553; 83010; 83605; 83615; 83690; 83735; 84484; 85025; 85379; 85610; 85730; 86850; 86900; 86901; 87040; 87045; 87046; 87086; 87324; 87449; 87493; 87804; 87899; 93005; 96360; 96361; 96374; 99406; A4216; C9113; J0696; J2270; J2405; J2550; J3480; J7050; P9016